=== PATIENT | female | born 1985 | race Caucasian/White ===

== ENCOUNTER 2016-05-24 13:20 | Emergency (ER) | payer MEDICAID ==
[2016-05-24] MEDS ORDERED: Zofran 4 MG/2 ML VIAL IV ONE (13:55)
[2016-05-24] MEDS ORDERED: DILAUDID 1 MG/ML INJECTION IV ONE (13:55)
[2016-05-24] MEDS ORDERED: Sodium Chloride 0.9% 1000 ML 1,000 ML IV STA (13:56)
[2016-05-24] MEDS ORDERED: BENADRYL 50 MG/ML IV ONE (13:56)
[2016-05-24] MEDS ORDERED: TORAdol 30 mg Injection IV ONE (13:56)
[2016-05-24] MEDS ORDERED: DILAUDID 1 MG/ML INJECTION ONE (14:00)
[2016-05-24] MEDS ORDERED: Zofran 4 MG/2 ML VIAL ONE (14:00)
--- NOTE | 2016-05-24 14:01 | ERPHSYRPT ---
- History of Present Illness Time Seen by Provider: 05/24/16 13:50 Source: patient Exam Limitations: no limitations Patient Subjective Stated Complaint: Pt states she has had a migraine for 1 week. She states that she is nauseous, has "spots" in her vision, and is sensitive to light. She went to [place] to the [employer] on Friday and was given Toradol but it didn't help the pain. She was at [facility] at the end of April and a CT scan there showed a "dark spot on the right side of the head". She was transferred to [facility] and admitted. She was discharged on May 11. She has an appointment w/ Dr. De Oliveira on June 05. She states the only medication that helps the pain is Nubain or [place]. Triage Nursing Assessment: Pt alert and oriented x3. skin pink warm and dry. afebrile. pt moaning and grabbing right side of pain. no weakness noted. pupils 4mm and reactive Physician History: 31 y/o female with history of migraine headache comes to the ER with complaints of right sided headache for the past week. Pt describes the pain as throbbing, constant, as high as 10/10, with photophobia and nausea/vomiting. Pt has not taken any pain meds. Pt has an appointment with a neurologist later this month. Pt denies any fever, chills, neck pain, abdominal pain, diarrhea or urinary symptoms. Timing/Duration: week(s), constant Quality: throbbing Head Pain Location: frontal Severity of Pain-Max: severe Severity of Pain-Current: severe Recent Head Trauma: no recent headache/trauma Modifying Factors: Improves With: rest Associated Symptoms: nausea/vomiting Allergies/Adverse Reactions: sumatriptan [From Imitrex] Allergy (Verified 05/24/16 13:40) Home Medications: Amitriptyline HCl 25 mg [Elavil 25 mg] 25 mg PO HS 05/24/16 [History] Hx Tetanus, Diphtheria Vaccination/Date Given: Yes Hx Influenza Vaccination/Date Given: No Hx Pneumococcal Vaccination/Date Given: No - Review of Systems Constitutional: No Fever, No Chills Eyes: No Symptoms, Photophobia Ears, Nose, & Throat: No Symptoms Respiratory: No Cough, No Dyspnea Cardiac: No Chest Pain, No Edema, No Syncope Abdominal/Gastrointestinal: Nausea, Vomiting, No Abdominal Pain, No Diarrhea Genitourinary Symptoms: No Dysuria Musculoskeletal: No Back Pain, No Neck Pain Skin: No Rash Neurological: Headache, No Dizziness, No Focal Weakness, No Sensory Changes Psychological: No Symptoms Endocrine: No Symptoms All Other Systems: Reviewed and Negative - Past Medical History Pertinent Past Medical History: Yes Neurological History: Migraines, Seizures Cardiac History: Other Respiratory History: Pulmonary Embolism Other Medical History: PE after Hysterectomy, heart murmur - Past Surgical History Past Surgical History: Yes Gastrointestinal: Cholecystectomy Female Surgical History: Hysterectomy Other Surgical History: partial hyst 2008, rt fallopian tube and ovary removed last year, D & C - Social History Smoking Status: Never smoker Exposure to second hand smoke: No Drug Use: none Patient Lives Alone: No - Female History Hx Last Menstrual Period: hyster - Nursing Vital Signs Nursing Vital Signs: Initial Vital Signs Temperature 97.7 F Temperature Source Oral Pulse Rate 67 Respiratory Rate 12 Blood Pressure 126/86 Pain Intensity 8 - Physical Exam General Appearance: severe distress, anxiety Eye Exam: PERRL/EOMI, photophobia Ears, Nose, Throat Exam: normal ENT inspection, moist mucous membranes Neck Exam: normal inspection, supple, full range of motion, No meningismus Respiratory Exam: normal breath sounds, lungs clear Cardiovascular Exam: regular rate/rhythm, normal heart sounds Gastrointestinal/Abdominal Exam: soft, No tenderness, No distention Back Exam: normal inspection, normal range of motion Extremity Exam: normal inspection, normal range of motion Mental Status Exam: 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, 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, 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 Exam: normal hearing, normal speech, PERRL, No facial droop Coordination/Gait Exam: normal cerebellar function Motor/Sensory Exam: no motor deficit, no sensory deficit Skin Exam: normal color, warm, dry, No rash SpO2: 100 Oxygen Delivery: Room Air Ordered Tests: Active Orders 24 hr Category Date Time Status IV Insertion STAT Care 05/24/16 13:55 Active Medication Summary Discontinued Medications Generic Name Dose Route Start Last Admin Trade Name Jass PRN Reason Stop Dose Admin Diphenhydramine HCl 25 mg 05/24/16 13:56 05/24/16 14:12 Benadryl 50 Mg/Ml IV 05/24/16 13:57 25 mg STAT ONE Administration Diphenhydramine HCl Confirm 05/24/16 14:10 Benadryl 50 Mg/Ml Administered 05/24/16 14:11 Dose 50 mg .ROUTE .STK-MED ONE Hydromorphone HCl 1 mg 05/24/16 13:55 05/24/16 14:13 Dilaudid 1 Mg/Ml Injection IV 05/24/16 13:56 1 mg STAT ONE Administration Hydromorphone HCl Confirm 05/24/16 14:00 Dilaudid 1 Mg/Ml Injection Administered 05/24/16 14:01 Dose 1 mg .ROUTE .STK-MED ONE Sodium Chloride 1,000 mls @ 999 mls/hr 05/24/16 13:56 05/24/16 14:13 Sodium Chloride 0.9% 1000 Ml IV 05/24/16 14:56 999 mls/hr .Q1H1M STA Administration Sodium Chloride Confirm 05/24/16 14:10 Sodium Chloride 0.9% 1000 Ml Administered 05/24/16 14:11 Dose 1,000 mls @ ud .ROUTE .STK-MED ONE Ketorolac Tromethamine 30 mg 05/24/16 13:56 05/24/16 14:12 Toradol 30 Mg Injection IV 05/24/16 13:57 30 mg STAT ONE Administration Ketorolac Tromethamine Confirm 05/24/16 14:10 Toradol 30 Mg Injection Administered 05/24/16 14:11 Dose 30 mg .ROUTE .STK-MED ONE Ondansetron HCl 4 mg 05/24/16 13:55 05/24/16 14:12 Zofran 4 Mg/2 Ml Vial IV 05/24/16 13:56 4 mg STAT ONE Administration Ondansetron HCl Confirm 05/24/16 14:00 Zofran 4 Mg/2 Ml Vial Administered 05/24/16 14:01 Dose 4 mg .ROUTE .STK-MED ONE - Progress Progress: improved Air Movement: good Progress Note: 05/24/16 14:59 Pt feels better after receiving dilaudid, benadryl, toradol, zofran and IVF. Pt will be d/c home with a diagnosis of migraine headache and will F/U with her neurologist on 06/05 - Departure Time of Disposition: 15:01 Departure Disposition: Home Clinical Impression: Migraine headache Condition: Stable Critical Care Time: No Referrals: DONNIE SCHNEIDER [Primary Care Provider] - Instructions: Headache Additional Instructions: Follow up with your neurologist on 06/05 for further recommendations concerning management of migraine headaches. Also,call your primary care physician today to set up an appointment.
[2016-05-24] MEDS ORDERED: TORAdol 30 mg Injection ONE (14:10)
[2016-05-24] MEDS ORDERED: Sodium Chloride 0.9% 1000 ML 1,000 ML ONE (14:10)
[2016-05-24] MEDS ORDERED: BENADRYL 50 MG/ML ONE (14:10)
[2016-05-24 14:28] VITALS: BP 126/86
[2016-05-24 15:24] VITALS: PULSE 79; O2SAT 97
== END 2016-05-24 15:24 ==
LOC: ED 13:20
DX: G43.909 Migraine, unspecified, not intractable, without status migrainosus (principal); R11.2 Nausea with vomiting, unspecified; H53.8 Other visual disturbances
CPT/HCPCS: 36000; 96360; 96374; 96375; 99282; J1170; J1200; J1885; J2405

== ENCOUNTER 2016-06-08 14:19 | Emergency (ER) | payer MEDICAID, OTHER ==
--- NOTE | 2016-06-08 14:35 | ERPHSYRPT ---
- History of Present Illness Time Seen by Provider: 06/08/16 14:31 Source: patient, family Exam Limitations: no limitations Patient Subjective Stated Complaint: patient woke up 4 days ago with pain in left shoulder , saw nurse practitioner at [facility] wrote order for x-ray but they didnt have a way up here now they want to be treated in ER and just get taken care of here Triage Nursing Assessment: patient has tenderness and swelling in left shoulder and kneck, no abnormalities seen but patietn unable to move left extremity Physician History: patient woke up 4 days ago with pain in left shoulder , saw nurse practitioner at [facility] wrote order for x-ray but they didnt have a way up here now they want to be treated in ER and just get taken care of here Occurred: days ago Method of Injury: unknown Quality: constant Severity of Pain-Max: moderate Severity of Pain-Current: moderate Extremities Pain Location: shoulder: left, other: bilateral (neck pain) Modifying Factors: Improves With: nothing Associated Symptoms: neck pain Allergies/Adverse Reactions: sumatriptan [From Imitrex] Allergy (Verified 05/24/16 13:40) Home Medications: Amitriptyline HCl 25 mg [Elavil 25 mg] 25 mg PO HS 05/24/16 [History] Hx Tetanus, Diphtheria Vaccination/Date Given: Yes Hx Influenza Vaccination/Date Given: No Hx Pneumococcal Vaccination/Date Given: No Immunizations Up to Date: Yes - Review of Systems Constitutional: No Symptoms Eyes: No Symptoms Ears, Nose, & Throat: No Symptoms Respiratory: No Symptoms Cardiac: No Symptoms Abdominal/Gastrointestinal: No Symptoms Genitourinary Symptoms: No Symptoms Musculoskeletal: Other (left shoulder and neck pain) - Past Medical History Pertinent Past Medical History: Yes Neurological History: Migraines, Seizures Cardiac History: Other Respiratory History: Pulmonary Embolism Other Medical History: PE after Hysterectomy, heart murmur - Past Surgical History Past Surgical History: Yes Gastrointestinal: Cholecystectomy Female Surgical History: Hysterectomy Other Surgical History: partial hyst 2008, rt fallopian tube and ovary removed last year, D & C - Social History Smoking Status: Never smoker Exposure to second hand smoke: No Drug Use: none Patient Lives Alone: No - Nursing Vital Signs Nursing Vital Signs: Initial Vital Signs Temperature 97.6 F Temperature Source Oral Pulse Rate 90 Respiratory Rate 20 Blood Pressure [] 122/79 Pain Intensity 9 - Physical Exam General Appearance: no apparent distress Eyes, Ears, Nose, Throat Exam: normal ENT inspection Neck Exam: normal inspection Shoulder Exam: limited ROM, soft tissue tenderness Elbow/Forearm Exam: limited ROM, soft tissue tenderness SpO2: 98 Oxygen Delivery: Room Air - Course Nursing assessment & vital signs reviewed: Yes - Radiology Exams C-Spine X-ray Interpretation: Reviewed by me Shoulder X-ray Interpretation: Reviewed by me Ordered Tests: Active Orders 24 hr Category Date Time Status CERVICAL SPINE (2 OR 3 VIEW) Stat Exams 06/08/16 14:28 Taken SHOULDER Stat Exams 06/08/16 14:28 Taken Medication Summary Discontinued Medications Generic Name Dose Route Start Last Admin Trade Name Freq PRN Reason Stop Dose Admin Orphenadrine Citrate 60 mg 06/08/16 15:06 Norflex 60 Mg/2 Ml IM 06/08/16 15:07 STAT ONE - Progress Progress: unchanged, pain not gone completely Counseled pt/family regarding: diagnosis, need for follow-up, rad results - Departure Time of Disposition: 15:08 Departure Disposition: Home Clinical Impression: Left shoulder strain Qualifiers: Encounter type: initial encounter Qualified Code(s): S46.912A - Strain of unspecified muscle, fascia and tendon at shoulder and upper arm level, left arm , initial encounter Neck muscle strain Qualifiers: Encounter type: initial encounter Qualified Code(s): S16.1XXA - Strain of muscle, fascia and tendon at neck level, initial encounter Condition: Stable Critical Care Time: No Referrals: DONNIE SCHNEIDER [Primary Care Provider] - Instructions: Shoulder Pain, Neck Sprain, Neck Pain Additional Instructions: Please follow the instructions given to you. Please take your medication as prescribed if given. If symptoms recur or get worse, come back to the emergency room if you cannot reach your primary care physician, or call your primary care physician for an appointment. Again if your symptoms get worse, come back to the emergency room. Thanks for visiting emergency room, and let us take care of you.
[2016-06-08] MEDS ORDERED: Norflex 60 MG/2 ML IM ONE (15:06)
[2016-06-08] MEDS ORDERED: Norflex 60 MG/2 ML ONE (15:11)
[2016-06-08 15:25] VITALS: BP 135/70; PULSE 82; O2SAT 100
--- NOTE | 2016-06-08 21:44 | XRAY ---
Indication: Neck pain for 4 days. No known injury. Comparison: None 3 views of the cervical spine demonstrates normal alignment with disc spaces preserved. Minimal C3-C4 degenerative posterior endplate spurring. No acute fracture, subluxation, or soft tissue abnormalities.
--- NOTE | 2016-06-08 21:44 | XRAY ---
Indication: Pain for 4 days. No known injury. Comparison: None 3 views of the left shoulder obtained. No bony, articular, or soft tissue abnormalities.
== END 2016-06-08 15:25 | disposition home or self-care (01) ==
LOC: ED 14:19
DX: S46.912A Strain of unspecified muscle, fascia and tendon at shoulder and upper arm level, left arm, initial encounter (principal); S16.1XXA Strain of muscle, fascia and tendon at neck level, initial encounter; M54.2 Cervicalgia; M25.512 Pain in left shoulder
CPT/HCPCS: 72040; 73030; 96372; 99282; J2360

== ENCOUNTER 2016-08-02 21:44 | Emergency (ER) | payer OTHER ==
[2016-08-02] MEDS ORDERED: Phenergan 25 MG INJ IM ONE (22:00)
[2016-08-02] MEDS ORDERED: TORAdol 30 mg Injection IM ONE (22:00)
[2016-08-02] MEDS ORDERED: TYLENOL 325 MG PO ONE (22:00)
[2016-08-02] MEDS ORDERED: TORAdol 30 mg Injection ONE (22:04)
[2016-08-02] MEDS ORDERED: Phenergan 25 MG INJ ONE (22:04)
--- NOTE | 2016-08-02 22:10 | ERPHSYRPT ---
- History of Present Illness Time Seen by Provider: 08/02/16 22:08 Source: patient, family Exam Limitations: no limitations Patient Subjective Stated Complaint: COLLINS right side of head x 1 hour [employer] after being exposed to cigarette smoke. Sts took 3 regular strength tylenol at home for pain without relief. Sts nausea with pain. Lights/noise increase pain. Pain is throbbing, 9/10. Triage Nursing Assessment: Pt alert, oriented, answers all questions appropriately. Skin p/w/d, resps non-labored. Pt ambulatory to tx room, steady gait noted. Pt tearful, covering face. Pt pupils PERRL. Physician History: COLLINS right side of head x 1 hour [employer] after being exposed to cigarette smoke. Sts took 3 regular strength tylenol at home for pain without relief. Sts nausea with pain. Lights/noise increase pain. Pain is throbbing, 9/10. Quality: aching, burning Head Pain Location: frontal Severity of Pain-Max: moderate Severity of Pain-Current: moderate Recent Head Trauma: no recent headache/trauma Modifying Factors: Improves With: other (cigarrete smoke exposure) Allergies/Adverse Reactions: sumatriptan [From Imitrex] Allergy (Verified 08/02/16 22:08) Home Medications: Amitriptyline HCl 25 mg [Elavil 25 mg] 25 mg PO HS 05/24/16 [History] Hx Tetanus, Diphtheria Vaccination/Date Given: Yes Hx Influenza Vaccination/Date Given: No Hx Pneumococcal Vaccination/Date Given: No Immunizations Up to Date: Yes - Review of Systems Constitutional: No Fever, No Chills Eyes: No Symptoms Ears, Nose, & Throat: No Symptoms Respiratory: No Cough, No Dyspnea Cardiac: No Chest Pain, No Edema, No Syncope Abdominal/Gastrointestinal: No Abdominal Pain, No Nausea, No Vomiting, No Diarrhea Genitourinary Symptoms: No Dysuria Musculoskeletal: No Back Pain, No Neck Pain Skin: No Rash Neurological: Headache, No Dizziness, No Focal Weakness, No Sensory Changes Psychological: No Symptoms Endocrine: No Symptoms All Other Systems: Reviewed and Negative - Past Medical History Pertinent Past Medical History: Yes Neurological History: Migraines, Seizures Cardiac History: Other Respiratory History: Pulmonary Embolism Other Medical History: PE after Hysterectomy, heart murmur - Past Surgical History Past Surgical History: Yes Gastrointestinal: Cholecystectomy Female Surgical History: Hysterectomy Other Surgical History: partial hyst 2009, rt fallopian tube and ovary removed last year, D & C - Social History Smoking Status: Never smoker Exposure to second hand smoke: No Drug Use: none Patient Lives Alone: No - Female History Hx Last Menstrual Period: hyst - Nursing Vital Signs Nursing Vital Signs: Initial Vital Signs Temperature 98.1 F Temperature Source Oral Pulse Rate 94 Respiratory Rate 16 Blood Pressure [Right Arm] 139/76 Pain Intensity 9 - Physical Exam General Appearance: no apparent distress Eye Exam: PERRL/EOMI Ears, Nose, Throat Exam: normal ENT inspection, moist mucous membranes Neck Exam: normal inspection, supple, full range of motion, No meningismus Respiratory Exam: normal breath sounds, lungs clear Cardiovascular Exam: regular rate/rhythm, normal heart sounds Gastrointestinal/Abdominal Exam: soft, No tenderness, No distention Back Exam: normal inspection, normal range of motion Mental Status 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, 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, 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 Exam: normal speech, PERRL, No facial droop Coordination/Gait Exam: normal cerebellar function Motor/Sensory Exam: no motor deficit, no sensory deficit Skin Exam: normal color, warm, dry, No rash SpO2: 98 Oxygen Delivery: Room Air - Course Nursing assessment & vital signs reviewed: Yes Ordered Tests: Medication Summary Discontinued Medications Generic Name Dose Route Start Last Admin Trade Name Chilangoq PRN Reason Stop Dose Admin Acetaminophen 650 mg 08/02/16 22:00 08/02/16 22:06 Tylenol 325 Mg PO 08/02/16 22:01 Not Given STAT ONE Ketorolac Tromethamine 60 mg 08/02/16 22:00 08/02/16 22:05 Toradol 30 Mg Injection IM 08/02/16 22:01 60 mg STAT ONE Administration Ketorolac Tromethamine Confirm 08/02/16 22:04 Toradol 30 Mg Injection Administered 08/02/16 22:05 Dose 60 mg .ROUTE .STK-MED ONE Promethazine HCl 25 mg 08/02/16 22:00 08/02/16 22:05 Phenergan 25 Mg Inj IM 08/02/16 22:01 25 mg STAT ONE Administration Promethazine HCl Confirm 08/02/16 22:04 Phenergan 25 Mg Inj Administered 08/02/16 22:05 Dose 25 mg .ROUTE .STK-MED ONE - Progress Progress: improved Air Movement: good Blood Culture(s) Obtained: No Antibiotics given: No Counseled pt/family regarding: diagnosis, need for follow-up - Departure Time of Disposition: 22:29 Departure Disposition: Home Clinical Impression: Migraine headache Qualifiers: Migraine type: without aura Status migrainosus presence: without status migrainosus Intractability: intractable Qualified Code(s): G43.019 - Migraine without aura, intractable, without status migrainosus Condition: Stable Critical Care Time: No Referrals: DONNIE SCHNEIDER [Primary Care Provider] - Instructions: Headache Additional Instructions: HEADACHE 1. After discharge from the emergency department, you should rest at home in a cool, dark, quiet place for 12-24 hours. 2. If any of the following signs or symptoms are noticed, you should be re- evaluated right away: A. Visual changes B. Stiff Neck C. Change in quality or location of pain D. Fever E. Recurrent vomiting 3. If pain medications were prescribed or given, they may cause drowsiness. Prescriptions: Naproxen 375 mg [Naprosyn 375 mg] 375 mg PO Q8H #30 tablet
[2016-08-02 22:36] VITALS: BP 117/74; PULSE 84; O2SAT 99
== END 2016-08-02 22:37 | disposition home or self-care (01) ==
LOC: ED 21:44
DX: G43.019 Migraine without aura, intractable, without status migrainosus (principal); R11.0 Nausea; H53.149 Visual discomfort, unspecified
CPT/HCPCS: 96372; 99283; 99284; J1885; J2550

== ENCOUNTER 2016-09-06 21:28 | Emergency (ER) | payer OTHER ==
--- NOTE | 2016-09-06 23:20 | ERPHSYRPT ---
- History of Present Illness Time Seen by Provider: 09/06/16 22:30 Historian: patient Exam Limitations: no limitations Physician History: Postop appendectomy [address] Martinez at [facility]. She had 2 episodes of BRB that she coughed up while hospitalized, but that abated. She did notify the staff there, who felt that this would be a result of the ETT. Yesterday, she had a dog jump on her abd. Today, she had a BM without difficulty. She presents with worsening pain to right abd and she is out of her pain meds now. She reports vomiting x 2 today. Timing/Duration: today, worse Activities at Onset: none Quality: sharpness Abdominal Pain Onset Location: generalized abdomen Severity of Pain-Max: severe Severity of Pain-Current: severe Previous symptoms: same symptoms as today Allergies/Adverse Reactions: sumatriptan [From Imitrex] Allergy (Verified 09/06/16 23:32) Home Medications: Amitriptyline HCl 25 mg [Elavil 25 mg] 25 mg PO HS 05/24/16 [History] Hx Tetanus, Diphtheria Vaccination/Date Given: Yes Hx Influenza Vaccination/Date Given: No Hx Pneumococcal Vaccination/Date Given: No - Review of Systems Constitutional: No Symptoms Eyes: No Symptoms Ears, Nose, & Throat: No Symptoms Respiratory: No Symptoms Cardiac: No Symptoms Abdominal/Gastrointestinal: Abdominal Pain, Vomiting Genitourinary Symptoms: No Symptoms Musculoskeletal: No Symptoms Skin: No Symptoms Neurological: No Symptoms Psychological: No Symptoms Endocrine: No Symptoms Hematologic/Lymphatic: No Symptoms Immunological/Allergic: No Symptoms - Past Medical History Pertinent Past Medical History: Yes Neurological History: Migraines, Seizures Cardiac History: Other Respiratory History: Pulmonary Embolism Other Medical History: PE after Hysterectomy, heart murmur - Past Surgical History Past Surgical History: Yes Gastrointestinal: Cholecystectomy Female Surgical History: Hysterectomy Other Surgical History: partial hyst 2009, rt fallopian tube and ovary removed last year, D & C - Social History Smoking Status: Never smoker Exposure to second hand smoke: No Drug Use: none Patient Lives Alone: No - Nursing Vital Signs Nursing Vital Signs: Initial Vital Signs Temperature 98.9 F Temperature Source Oral Pulse Rate 84 Respiratory Rate 16 Blood Pressure [Left Arm] 120/80 Pain Intensity 2 - Physical Exam General Appearance: moderate distress Eye Exam: eyes nml inspection Ears, Nose, Throat Exam: normal ENT inspection, pharynx normal Neck Exam: normal inspection, non-tender, supple, full range of motion Respiratory Exam: normal breath sounds, lungs clear Cardiovascular Exam: regular rate/rhythm, normal heart sounds, normal peripheral pulses Gastrointestinal/Abdomen Exam: soft, tenderness, distention, other (quiet bowel sounds) Back Exam: normal inspection, normal range of motion Extremity Exam: normal inspection, normal range of motion, pelvis stable Neurologic Exam: alert, 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, cooperative Skin Exam: normal color, warm, dry SpO2 Interpretation: normal SpO2: 98 - Course Nursing assessment & vital signs reviewed: Yes - CT Exams Abdomen/Pelvis CT Interpretation: Negative, Tele-radiologist Report (Postsurgical appearance C/ W recent appendectomy) Ordered Tests: Active Orders 24 hr Category Date Time Status IV Insertion STAT Care 09/06/16 23:47 Active NPO (ED) STAT Care 09/06/16 23:23 Active ABDOMEN AND PELVIS W CONTRAST [CT] Stat Exams 09/06/16 23:23 Taken CBC W DIFF Stat Lab 09/06/16 23:35 Completed CMP Stat Lab 09/06/16 23:35 Completed HCG,QUALITATIVE URINE Stat Lab 09/06/16 23:40 Completed LIPASE Stat Lab 09/06/16 23:35 Completed Lactic Acid Urgent Lab 09/06/16 23:31 Completed UA Stat Lab 09/06/16 23:40 Completed Medication Summary Generic Name Dose Route Start Last Admin Trade Name Freq PRN Reason Stop Dose Admin Sodium Chloride 1,000 mls @ 100 mls/hr 09/06/16 23:30 09/06/16 23:45 Sodium Chloride 0.9% 1000 Ml IV 10/06/16 23:29 100 mls/hr .Q10H MALIKA Administration Discontinued Medications Generic Name Dose Route Start Last Admin Trade Name Freq PRN Reason Stop Dose Admin Hydromorphone HCl 1 mg 09/06/16 23:23 09/06/16 23:45 Hydromorphone 1 Mg/Ml Ampule IV 09/06/16 23:24 1 mg STAT ONE Administration Hydromorphone HCl Confirm 09/06/16 23:29 Hydromorphone 1 Mg/Ml Ampule Administered 09/06/16 23:30 Dose 1 mg .ROUTE .STK-MED ONE Ondansetron HCl 4 mg 09/06/16 23:23 09/06/16 23:45 Zofran 4 Mg/2 Ml Vial IV 09/06/16 23:24 4 mg STAT ONE Administration Ondansetron HCl Confirm 09/06/16 23:29 Zofran 4 Mg/2 Ml Vial Administered 09/06/16 23:30 Dose 4 mg .ROUTE .STK-MED ONE Pantoprazole Sodium 40 mg 09/06/16 23:23 09/06/16 23:45 Protonix 40 Mg Iv IV 09/06/16 23:24 40 mg STAT ONE Administration Pantoprazole Sodium Confirm 09/06/16 23:29 Protonix 40 Mg Iv Administered 09/06/16 23:30 Dose 40 mg IV .STK-MED ONE Lab/Rad Data: Laboratory Result Diagrams 09/06/16 23:35 09/06/16 23:35 Laboratory Results 09/06/16 09/06/16 09/06/16 Range/Units 23:40 23:40 23:35 WBC (4.0-10.5) K/mm3 RBC (4.1-5.4) M/mm3 Hgb (12.0-16.0) gm/dl Hct (35-47) % MCV (78-100) fl MCH (26-32) pg MCHC (32-36) g/dl RDW (11.5-14.0) % Plt Count (150-450) K/mm3 MPV (6-9.5) fl Gran % (36.0-66.0) % Lymphocytes % (24.0-44.0) % Monocytes % (0.0-12.0) % Eosinophils % (0.00-5.0) % Basophils % (0.0-0.4) % Basophils # (0-0.4) Sodium 140 (136-145) mEq/L Potassium 3.9 (3.5-5.1) mEq/L Chloride 101 (98-107) mEq/L Carbon Dioxide 27.9 (21-32) mEq/L Anion Gap 14.6 (5-15) MEQ/L BUN 11 (9-20) mg/dL Creatinine 0.70 (0.55-1.30) mg/dl Estimated GFR > 60 ML/MIN Glucose 101 (70-110) MG/DL Lactic Acid (0.4-2.0) Calcium 9.5 (8.5-10.1) mg/dL Total Bilirubin 0.3 (0.2-1.0) mg/dL AST 9 L (15-37) U/L ALT 19 (12-78) U/L Alkaline Phosphatase 144 H (46-116) U/L Serum Total Protein 8.1 (6.4-8.2) gm/dL Albumin 4.1 (3.4-5.0) g/dL Lipase 91 (73-393) U/L Ur Collection Type CLEAN CATCH Urine Color YELLOW (YELLOW) Urine Appearance CLEAR (CLEAR) Urine pH 7.5 (5-6) Ur Specific [place] 1.020 (1.005-1.025) Urine Protein NEGATIVE (Negative) Urine Glucose (UA) NEGATIVE (NEGATIVE) mg/dL Urine Ketones NEGATIVE (NEGATIVE) Urine Nitrite NEGATIVE (NEGATIVE) Urine Bilirubin NEGATIVE (NEGATIVE) Urine Urobilinogen 0.2 (0-1) mg/dL Urine WBC (Auto) NEGATIVE (NEGATIVE) Urine RBC (Auto) NEGATIVE (0-5) Sherwin/ul Urine HCG, Qual NEGATIVE (Negative) Specimen Received 09/06/16:2340 09/06/16 09/06/16 Range/Units 23:35 23:31 WBC 7.9 (4.0-10.5) K/mm3 RBC 5.01 (4.1-5.4) M/mm3 Hgb 15.4 (12.0-16.0) gm/dl Hct 46.4 (35-47) % MCV 92.6 (78-100) fl MCH 30.7 (26-32) pg MCHC 33.2 (32-36) g/dl RDW 12.5 (11.5-14.0) % Plt Count 242 (150-450) K/mm3 MPV 11.5 H (6-9.5) fl Gran % 56.9 (36.0-66.0) % Lymphocytes % 33.2 (24.0-44.0) % Monocytes % 4.7 (0.0-12.0) % Eosinophils % 4.8 (0.00-5.0) % Basophils % 0.4 (0.0-0.4) % Basophils # 0.03 (0-0.4) Sodium (136-145) mEq/L Potassium (3.5-5.1) mEq/L Chloride (98-107) mEq/L Carbon Dioxide (21-32) mEq/L Anion Gap (5-15) MEQ/L BUN (9-20) mg/dL Creatinine (0.55-1.30) mg/dl Estimated GFR ML/MIN Glucose (70-110) MG/DL Lactic Acid 0.8 (0.4-2.0) Calcium (8.5-10.1) mg/dL Total Bilirubin (0.2-1.0) mg/dL AST (15-37) U/L ALT (12-78) U/L Alkaline Phosphatase (46-116) U/L Serum Total Protein (6.4-8.2) gm/dL Albumin (3.4-5.0) g/dL Lipase (73-393) U/L Ur Collection Type Urine Color (YELLOW) Urine Appearance (CLEAR) Urine pH (5-6) Ur Specific [place] (1.005-1.025) Urine Protein (Negative) Urine Glucose (UA) (NEGATIVE) mg/dL Urine Ketones (NEGATIVE) Urine Nitrite (NEGATIVE) Urine Bilirubin (NEGATIVE) Urine Urobilinogen (0-1) mg/dL Urine WBC (Auto) (NEGATIVE) Urine RBC (Auto) (0-5) Sherwin/ul Urine HCG, Qual (Negative) Specimen Received - Progress Progress: improved Will see patient in: other (PCP 3 days) Counseled pt/family regarding: lab results, diagnosis, need for follow-up, rad results - Departure Time of Disposition: 02:00 Departure Disposition: Home Clinical Impression: Postoperative pain Condition: Stable Critical Care Time: No Prescriptions: Naproxen [Naprosyn] 500 mg PO BID #20 tablet
[2016-09-06] MEDS ORDERED: PROTONIX 40 MG IV IV ONE ×2 (23:23→23:29)
[2016-09-06] MEDS ORDERED: Zofran 4 MG/2 ML VIAL IV ONE (23:23)
[2016-09-06] MEDS ORDERED: Hydromorphone 1 mg/ml Ampule IV ONE (23:23)
[2016-09-06] MEDS ORDERED: Zofran 4 MG/2 ML VIAL ONE (23:29)
[2016-09-06] MEDS ORDERED: Hydromorphone 1 mg/ml Ampule ONE (23:29)
[2016-09-06] MEDS ORDERED: Sodium Chloride 0.9% 1000 ML 1,000 ML ONE (23:29)
[2016-09-06] MEDS ORDERED: Sodium Chloride 0.9% 1000 ML 1,000 ML IV SCH (23:30)
[2016-09-06 23:45] LABS: BASOPHIL % 0.4 % (0.0-0.4); Eosinophil % 4.8 % (0.00-5.0); Granulocytes % 56.9 % (36.0-66.0); Lymphocytes % 33.2 % (24.0-44.0); Mean Cell Volume 92.6 fl (78-100); Mean Corpuscular Hemoglobin 30.7 pg (26-32); Mean Platelet Volume 11.5 fl (6-9.5); Monocytes % 4.7 % (0.0-12.0); Platelet Count 242 K/mm3 (150-450); Red Blood Count 5.01 M/mm3 (4.1-5.4); Red Cell Distribution Width 12.5 % (11.5-14.0); White Blood Count 7.9 K/mm3 (4.0-10.5)
[2016-09-06 23:52] LABS: Collection Type CLEAN CATCH
[2016-09-06 23:53] LABS: COMPLETE URINE MICROSCOPIC? NO; Ph 7.5 (5-6)
[2016-09-07 00:06] LABS: ALBUMIN 4.1 g/dL (3.4-5.0); ALKALINE PHOSPHATASE 144 U/L (46-116); ANION GAP 14.6 MEQ/L (5-15); BILIRUBIN,TOTAL 0.3 mg/dL (0.2-1.0); BLOOD UREA NITROGEN 11 mg/dL (9-20); CHLORIDE 101 mEq/L (98-107); Carbon Dioxide 27.9 mEq/L (21-32); Glucose 101 MG/DL (70-110); LIPASE 91 U/L (73-393); Potassium 3.9 mEq/L (3.5-5.1); SGOT/AST 9 U/L (15-37); SGPT/ALT 19 U/L (12-78); SODIUM 140 mEq/L (136-145); Total Protein 8.1 gm/dL (6.4-8.2)
[2016-09-07 02:14] VITALS: BP 119/72; PULSE 72; O2SAT 99
--- NOTE | 2016-09-07 08:56 | XRAY ---
Indication: Right abdominal pain and emesis. Status post appendectomy 5 days. Multiple contiguous axial images obtained through the abdomen and pelvis using 80 cc of Isovue-370 contrast only. Comparison: Outside study from [facility] dated February 14, 2016. Lung bases demonstrates minimal bibasilar dependent atelectasis. Heart is not enlarged. Stomach is moderately fluid distended. Noncontrasted bowel loops appear nonobstructed. There has been appendectomy. A few tiny intra-abdominal and right lower quadrant anterior abdominal wall air bubbles presumed related to recent surgery. No walled off fluid collection/abscess. Stable 1.5 cm right lobe hepatic hemangioma. Remaining liver, pancreas, spleen, adrenal glands, kidneys, ureters, bladder, and aorta appear unremarkable. No pathologic retroperitoneal lymphadenopathy. Osseous structures intact with multilevel thoracolumbar Schmorl nodes and L4 limbus vertebrae. Impression: 1. Normal post surgical changes related to recent appendectomy. No complications or walled off fluid collection. 2. Stable hepatic hemangioma. Comment: Preliminary interpretation was made by C. No discrepancy. CTDI 17.66
== END 2016-09-07 02:13 | disposition home or self-care (01) ==
LOC: ED 21:28
DX: G89.18 Other acute postprocedural pain (principal); Z98.890 Other specified postprocedural states; R10.9 Unspecified abdominal pain; R11.10 Vomiting, unspecified
CPT/HCPCS: 36000; 36415; 74177; 80053; 81002; 83605; 83690; 84703; 85025; 87040; 96360; 96361; 96374; 96375; 99284; 99285; J1170; J2405

== ENCOUNTER 2016-10-04 00:26 | Emergency (ER) | payer OTHER ==
[2016-10-04] MEDS ORDERED: Phenergan 25 MG INJ IV ONE (00:40)
[2016-10-04] MEDS ORDERED: MORPHINE SULFATE 4 MG INJ IV ONE (00:40)
[2016-10-04] MEDS ORDERED: Sodium Chloride 0.9% 1000 ML 1,000 ML IV STA (00:40)
--- NOTE | 2016-10-04 00:48 | ERPHSYRPT ---
- History of Present Illness Time Seen by Provider: 10/04/16 00:34 Historian: patient Exam Limitations: no limitations Patient Subjective Stated Complaint: pt states shes been having sharp abd pain for 2 days on rlq. states she has been having vomiting after eating Triage Nursing Assessment: pt alert and oriented, answers questions approp. pt ambulatory with steady gait noted. respirations nonlabored with lungs cta. abd soft with some tenderness on rt side. Physician History: SINCE YESTERDAY AFTER EATING [employer]S PEPPERONI PIZZA PT HAS HAD CONSTANT SHARP RIGHT UPPER QUADRANT ABDOMINAL PAIN WITH VOMITING X2 AND SHORTNESS OF AIR. LAST BM WAS YESTERDAY & WNL. PT DENIES CHEST PAIN, FEVER, RASH. Allergies/Adverse Reactions: sumatriptan [From Imitrex] Allergy (Verified 09/06/16 23:32) Home Medications: No Home Meds 1 ea MC UD 10/04/16 [History] Hx Tetanus, Diphtheria Vaccination/Date Given: Yes Hx Influenza Vaccination/Date Given: No Hx Pneumococcal Vaccination/Date Given: No Immunizations Up to Date: Yes - Review of Systems Constitutional: No Fever Respiratory: Dyspnea Cardiac: No Chest Pain Abdominal/Gastrointestinal: Abdominal Pain, Vomiting, No Diarrhea Neurological: No Headache All Other Systems: Reviewed and Negative - Past Medical History Pertinent Past Medical History: Yes Neurological History: Migraines, Seizures Cardiac History: Other Respiratory History: Pulmonary Embolism Other Medical History: PE after Hysterectomy, heart murmur - Past Surgical History Past Surgical History: Yes Gastrointestinal: Appendectomy, Cholecystectomy Female Surgical History: Hysterectomy Other Surgical History: partial hyst 2008, rt fallopian tube and ovary removed last year, D & C - Social History Smoking Status: Never smoker Exposure to second hand smoke: No Drug Use: none Patient Lives Alone: No - Female History Hx Last Menstrual Period: hysterectomy - Nursing Vital Signs Nursing Vital Signs: Initial Vital Signs Temperature 97.3 F Temperature Source Oral Pulse Rate 82 Respiratory Rate 16 Blood Pressure [Right Arm] 122/62 Pain Intensity 9 - Physical Exam General Appearance: alert Eye Exam: PERRL/EOMI, eyes nml inspection Ears, Nose, Throat Exam: TMs normal, pharynx normal, moist mucous membranes Neck Exam: normal inspection Respiratory Exam: lungs clear Cardiovascular Exam: normal heart sounds Gastrointestinal/Abdomen Exam: soft, normal bowel sounds, tenderness (MILD RIGHT UPPER QUADRANT ABDOMINAL TENDERNESS), No guarding Back Exam: normal range of motion Extremity Exam: normal inspection, No pedal edema Neurologic Exam: alert, cooperative Skin Exam: warm, dry SpO2 Interpretation: normal SpO2: 100 Oxygen Delivery: Room Air - Course Nursing assessment & vital signs reviewed: Yes Ordered Tests: Active Orders 24 hr Category Date Time Status Clean Catch Urine Specimen STAT Care 10/04/16 00:40 Active EKG-ER Only STAT Care 10/04/16 00:40 Active IV Insertion STAT Care 10/04/16 00:40 Active CHEST 1 VIEW (PORTABLE) Stat Exams 10/04/16 00:41 Taken AMYLASE Stat Lab 10/04/16 00:51 Completed CBC W DIFF Stat Lab 10/04/16 00:51 Completed CMP Stat Lab 10/04/16 00:51 Completed HCG QUALITATIVE,SERUM Stat Lab 10/04/16 00:51 Stop Req HCG, Quantitative (Inhouse) Stat Lab 10/04/16 01:00 Received LIPASE Stat Lab 10/04/16 00:51 Completed TROPONIN Stat Lab 10/04/16 00:51 Completed UA W/RFX UR CULTURE Stat Lab 10/04/16 01:25 Completed Urine Triage Profile Stat Lab 10/04/16 01:25 Completed Medication Summary Discontinued Medications Generic Name Dose Route Start Last Admin Trade Name Freq PRN Reason Stop Dose Admin Sodium Chloride 1,000 mls @ 999 mls/hr 10/04/16 00:40 10/04/16 01:13 Sodium Chloride 0.9% 1000 Ml IV 10/04/16 01:40 999 mls/hr .Q1H1M STA Administration Sodium Chloride Confirm 10/04/16 01:05 Sodium Chloride 0.9% 1000 Ml Administered 10/04/16 01:06 Dose 1,000 mls @ ud .ROUTE .STK-MED ONE Morphine Sulfate 4 mg 10/04/16 00:40 10/04/16 01:16 Morphine Sulfate 4 Mg Inj IV 10/04/16 00:41 4 mg STAT ONE Administration Morphine Sulfate Confirm 10/04/16 01:05 Morphine Sulfate 4 Mg Inj Administered 10/04/16 01:06 Dose 4 mg .ROUTE .STK-MED ONE Promethazine HCl 12.5 mg 10/04/16 00:40 10/04/16 01:14 Phenergan 25 Mg Inj IV 10/04/16 00:41 12.5 mg STAT ONE Administration Promethazine HCl Confirm 10/04/16 01:04 Phenergan 25 Mg Inj Administered 10/04/16 01:05 Dose 25 mg .ROUTE .STK-MED ONE Lab/Rad Data: Laboratory Result Diagrams 10/04/16 00:51 10/04/16 00:51 Laboratory Results 10/04/16 10/04/16 10/04/16 Range/Units 01:25 01:25 00:51 WBC (4.0-10.5) K/mm3 RBC (4.1-5.4) M/mm3 Hgb (12.0-16.0) gm/dl Hct (35-47) % MCV (78-100) fl MCH (26-32) pg MCHC (32-36) g/dl RDW (11.5-14.0) % Plt Count (150-450) K/mm3 MPV (6-9.5) fl Gran % (36.0-66.0) % Lymphocytes % (24.0-44.0) % Monocytes % (0.0-12.0) % Eosinophils % (0.00-5.0) % Basophils % (0.0-0.4) % Basophils # (0-0.4) Sodium 143 (136-145) mEq/L Potassium 3.7 (3.5-5.1) mEq/L Chloride 107 (98-107) mEq/L Carbon Dioxide 28.2 (21-32) mEq/L Anion Gap 11.7 (5-15) MEQ/L BUN 16 (9-20) mg/dL Creatinine 0.80 (0.55-1.30) mg/dl Estimated GFR > 60 ML/MIN Glucose 98 (70-110) MG/DL Calcium 8.8 (8.5-10.1) mg/dL Total Bilirubin 0.20 (0.2-1.0) mg/dL AST 14 L (15-37) U/L ALT 11 L (12-78) U/L Alkaline Phosphatase 148 H (46-116) U/L Troponin I < 0.017 (0.000-0.056) ng/ml Serum Total Protein 7.4 (6.4-8.2) gm/dL Albumin 3.8 (3.4-5.0) g/dL Amylase 47 (25-115) U/L Lipase 188 (73-393) U/L Ur Collection Type CLEAN CATCH Urine Color YELLOW (YELLOW) Urine Appearance SLIGHTLY CLOUDY (CLEAR) Urine pH 6.5 (5-6) Ur Specific [place] 1.025 (1.005-1.025) Urine Protein NEGATIVE (Negative) Urine Glucose (UA) NEGATIVE (NEGATIVE) mg/dL Urine Ketones NEGATIVE (NEGATIVE) Urine Nitrite NEGATIVE (NEGATIVE) Urine Bilirubin NEGATIVE (NEGATIVE) Urine Urobilinogen 0.2 (0-1) mg/dL Urine WBC (Auto) NEGATIVE (NEGATIVE) Urine RBC (Auto) NEGATIVE (0-5) Sherwin/ul Urine Opiates Level NEG. (NEGATIVE) Ur Methadone NEG. (NEGATIVE) Urine Barbiturates NEG. (NEGATIVE) Ur Phencyclidine (PCP) NEG. (NEGATIVE) Urine Amphetamine NEG. (NEGATIVE) U Benzodiazepine Level NEG. (NEGATIVE) Urine Cocaine NEG. (NEGATIVE) Urine Marijuana (THC) NEG. (NEGATIVE) Specimen Received 10/04/16 0130 10/04/16 Range/Units 00:51 WBC 7.6 (4.0-10.5) K/mm3 RBC 4.50 (4.1-5.4) M/mm3 Hgb 13.7 (12.0-16.0) gm/dl Hct 42.3 (35-47) % MCV 94.0 (78-100) fl MCH 30.4 (26-32) pg MCHC 32.4 (32-36) g/dl RDW 12.5 (11.5-14.0) % Plt Count 207 (150-450) K/mm3 MPV 11.3 H (6-9.5) fl Gran % 44.5 (36.0-66.0) % Lymphocytes % 42.6 (24.0-44.0) % Monocytes % 6.6 (0.0-12.0) % Eosinophils % 5.9 H (0.00-5.0) % Basophils % 0.4 (0.0-0.4) % Basophils # 0.03 (0-0.4) Sodium (136-145) mEq/L Potassium (3.5-5.1) mEq/L Chloride (98-107) mEq/L Carbon Dioxide (21-32) mEq/L Anion Gap (5-15) MEQ/L BUN (9-20) mg/dL Creatinine (0.55-1.30) mg/dl Estimated GFR ML/MIN Glucose (70-110) MG/DL Calcium (8.5-10.1) mg/dL Total Bilirubin (0.2-1.0) mg/dL AST (15-37) U/L ALT (12-78) U/L Alkaline Phosphatase (46-116) U/L Troponin I (0.000-0.056) ng/ml Serum Total Protein (6.4-8.2) gm/dL Albumin (3.4-5.0) g/dL Amylase (25-115) U/L Lipase (73-393) U/L Ur Collection Type Urine Color (YELLOW) Urine Appearance (CLEAR) Urine pH (5-6) Ur Specific [place] (1.005-1.025) Urine Protein (Negative) Urine Glucose (UA) (NEGATIVE) mg/dL Urine Ketones (NEGATIVE) Urine Nitrite (NEGATIVE) Urine Bilirubin (NEGATIVE) Urine Urobilinogen (0-1) mg/dL Urine WBC (Auto) (NEGATIVE) Urine RBC (Auto) (0-5) Sherwin/ul Urine Opiates Level (NEGATIVE) Ur Methadone (NEGATIVE) Urine Barbiturates (NEGATIVE) Ur Phencyclidine (PCP) (NEGATIVE) Urine Amphetamine (NEGATIVE) U Benzodiazepine Level (NEGATIVE) Urine Cocaine (NEGATIVE) Urine Marijuana (THC) (NEGATIVE) Specimen Received - Departure Time of Disposition: 01:51 Departure Disposition: Home Clinical Impression: ABDOMINAL PAIN, VOMITING, DYSPNEA Condition: Fair Critical Care Time: No Instructions: Abdominal Pain-Adult, Shortness of Breath Additional Instructions: FOLLOW UP WITH PRIVATE DOCTOR TOMORROW. Prescriptions: Promethazine HCl 25 mg [Phenergan 25 mg] 25 mg PO Q4H PRN PRN #14 tablet PRN Reason: Nausea/Vomiting
[2016-10-04 00:55] LABS: BASOPHIL % 0.4 % (0.0-0.4); Eosinophil % 5.9 % (0.00-5.0); Granulocytes % 44.5 % (36.0-66.0); Lymphocytes % 42.6 % (24.0-44.0); Mean Corpuscular Hemoglobin 30.4 pg (26-32); Mean Platelet Volume 11.3 fl (6-9.5); Monocytes % 6.6 % (0.0-12.0); Platelet Count 207 K/mm3 (150-450); Red Cell Distribution Width 12.5 % (11.5-14.0); White Blood Count 7.6 K/mm3 (4.0-10.5)
[2016-10-04] MEDS ORDERED: Phenergan 25 MG INJ ONE (01:04)
[2016-10-04] MEDS ORDERED: MORPHINE SULFATE 4 MG INJ ONE (01:05)
[2016-10-04] MEDS ORDERED: Sodium Chloride 0.9% 1000 ML 1,000 ML ONE (01:05)
[2016-10-04 01:20] LABS: ALBUMIN 3.8 g/dL (3.4-5.0); ALKALINE PHOSPHATASE 148 U/L (46-116); ANION GAP 11.7 MEQ/L (5-15); BLOOD UREA NITROGEN 16 mg/dL (9-20); CHLORIDE 107 mEq/L (98-107); Carbon Dioxide 28.2 mEq/L (21-32); Glucose 98 MG/DL (70-110); LIPASE 188 U/L (73-393); Potassium 3.7 mEq/L (3.5-5.1); SGOT/AST 14 U/L (15-37); SGPT/ALT 11 U/L (12-78); SODIUM 143 mEq/L (136-145); Total Protein 7.4 gm/dL (6.4-8.2)
[2016-10-04 01:25] LABS: TROPONIN < 0.017 ng/ml (0.000-0.056)
[2016-10-04 01:37] LABS: ADD URINE CULTURE? NO (NO); COMPLETE URINE MICROSCOPIC? NO; Collection Type CLEAN CATCH; Ph 6.5 (5-6)
[2016-10-04 02:08] VITALS: BP 98/52; PULSE 68; O2SAT 98
--- NOTE | 2016-10-04 09:57 | XRAY ---
Indication: Short of breath. Comparison: April 02, 2016. Portable chest again demonstrates normal heart, lungs, and bony thorax.
== END 2016-10-04 02:05 | disposition home or self-care (01) ==
LOC: ED 00:26
DX: R10.31 Right lower quadrant pain (principal); R11.10 Vomiting, unspecified; R19.7 Diarrhea, unspecified; R06.2 Wheezing; R06.00 Dyspnea, unspecified
CPT/HCPCS: 36000; 36415; 71010; 80053; 80307; 81002; 82150; 83690; 84484; 84702; 85025; 93005; 96360; 96374; 96375; 99284; J2270; J2550

== ENCOUNTER 2017-01-03 00:23 | Emergency (ER) | payer OTHER ==
[2017-01-03] MEDS ORDERED: Zofran 4 MG/2 ML VIAL IV ONE (00:42)
[2017-01-03] MEDS ORDERED: TORAdol 30 mg Injection IV ONE (00:42)
[2017-01-03] MEDS ORDERED: Hydromorphone 1 mg/ml Ampule IV ONE (00:42)
[2017-01-03 00:47] VITALS: BP 140/80
--- NOTE | 2017-01-03 00:48 | ERPHSYRPT ---
- History of Present Illness Time Seen by Provider: 01/03/17 00:43 Source: patient Exam Limitations: no limitations Physician History: 31 y/o female with history of migraine headache comes to the ER with complaints of right sided headache that started today. Pt describes the pain as sharp, constant, 9/10 and not relieved by naproxen. Pt also admits to photophobia, phonophobia and nausea. Pt denies any fever, chills, neck pain, vomiting, or sinus pain. Timing/Duration: today Quality: sharpness Head Pain Location: frontal Severity of Pain-Max: severe Severity of Pain-Current: severe Recent Head Trauma: occasional headaches Associated Symptoms: nausea/vomiting, sensitive to light, No facial pain, No neck pain, No stiff neck Previous symptoms: same symptoms as today Allergies/Adverse Reactions: sumatriptan [From Imitrex] Allergy (Verified 01/03/17 00:47) Home Medications: No Home Meds [No Home Meds] 1 [facility] 10/04/16 [History] Hx Tetanus, Diphtheria Vaccination/Date Given: Yes Hx Influenza Vaccination/Date Given: No Hx Pneumococcal Vaccination/Date Given: No - Review of Systems Constitutional: No Fever, No Chills Eyes: No Symptoms Ears, Nose, & Throat: No Symptoms Respiratory: No Cough, No Dyspnea Cardiac: No Chest Pain, No Edema, No Syncope Abdominal/Gastrointestinal: Nausea, No Abdominal Pain, No Vomiting, No Diarrhea Genitourinary Symptoms: No Dysuria Musculoskeletal: No Back Pain, No Neck Pain Skin: No Rash Neurological: Headache, No Dizziness, No Focal Weakness, No Sensory Changes Psychological: No Symptoms Endocrine: No Symptoms All Other Systems: Reviewed and Negative - Past Medical History Pertinent Past Medical History: Yes Neurological History: Migraines, Seizures Cardiac History: Other Respiratory History: Pulmonary Embolism Other Medical History: PE after Hysterectomy, heart murmur - Past Surgical History Past Surgical History: Yes Gastrointestinal: Appendectomy, Cholecystectomy Female Surgical History: Hysterectomy Other Surgical History: partial hyst 2009, rt fallopian tube and ovary removed last year, D & C - Social History Smoking Status: Never smoker Exposure to second hand smoke: No Drug Use: none Patient Lives Alone: No - Nursing Vital Signs Nursing Vital Signs: Initial Vital Signs Temperature 98 F 01/03/17 00:46 Pulse Rate 92 H 01/03/17 00:46 Respiratory Rate 16 01/03/17 00:46 Blood Pressure 140/80 01/03/17 00:46 O2 Sat by Pulse Oximetry 97 01/03/17 00:46 Pain Scale Pain Intensity 10 - Physical Exam General Appearance: moderate distress Eye Exam: PERRL/EOMI, photophobia Ears, Nose, Throat Exam: normal ENT inspection, moist mucous membranes Neck Exam: normal inspection, supple, full range of motion, No meningismus Respiratory Exam: normal breath sounds, lungs clear Cardiovascular Exam: regular rate/rhythm, normal heart sounds Gastrointestinal/Abdominal Exam: soft, No tenderness, No distention Back Exam: normal inspection, normal range of motion Mental Status Exam: alert, 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, 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 Exam: normal hearing, normal speech, PERRL, No facial droop Coordination/Gait Exam: normal cerebellar function Motor/Sensory Exam: no motor deficit, no sensory deficit Skin Exam: normal color, warm, dry, No rash SpO2 Interpretation: normal - Course Nursing assessment & vital signs reviewed: Yes Ordered Tests: Active Orders 24 hr Category Date Time Status IV Insertion STAT Care 01/03/17 00:42 Active Medication Summary Discontinued Medications Generic Name Dose Route Start Last Admin Trade Name Freq PRN Reason Stop Dose Admin Hydromorphone HCl 1 mg 01/03/17 00:42 01/03/17 01:00 Hydromorphone 1 Mg/Ml Ampule IV 01/03/17 00:43 1 mg STAT ONE Administration Hydromorphone HCl Confirm 01/03/17 00:58 Hydromorphone 1 Mg/Ml Ampule Administered 01/03/17 00:59 Dose 1 mg .ROUTE .STK-MED ONE Ketorolac Tromethamine 30 mg 01/03/17 00:42 01/03/17 01:01 Toradol 30 Mg Injection IV 01/03/17 00:43 30 mg STAT ONE Administration Ketorolac Tromethamine Confirm 01/03/17 00:58 Toradol 30 Mg Injection Administered 01/03/17 00:59 Dose 30 mg .ROUTE .STK-MED ONE Ondansetron HCl 4 mg 01/03/17 00:42 01/03/17 01:01 Zofran 4 Mg/2 Ml Vial IV 01/03/17 00:43 4 mg STAT ONE Administration Ondansetron HCl Confirm 01/03/17 00:58 Zofran 4 Mg/2 Ml Vial Administered 01/03/17 00:59 Dose 4 mg .ROUTE .STK-MED ONE - Progress Progress: improved Progress Note: 01/03/17 01:31 Pt feels better after receiving dilaudid, toradol and zofran. Pt will be d/c home - Departure Time of Disposition: 01:32 Departure Disposition: Home Clinical Impression: Migraine headache Qualifiers: Migraine type: unspecified Status migrainosus presence: without status migrainosus Intractability: not intractable Qualified Code(s): G43.909 - Migraine, unspecified, not intractable, without status migrainosus Condition: Stable Critical Care Time: No Referrals: DONNIE SCHNEIDER [Primary Care Provider] - Instructions: Migraine Additional Instructions: Follow up with your primary care doctor for any additional recommendations for migraine headache.
[2017-01-03] MEDS ORDERED: TORAdol 30 mg Injection ONE (00:58)
[2017-01-03] MEDS ORDERED: Hydromorphone 1 mg/ml Ampule ONE (00:58)
[2017-01-03] MEDS ORDERED: Zofran 4 MG/2 ML VIAL ONE (00:58)
[2017-01-03 01:50] VITALS: PULSE 80; O2SAT 98
== END 2017-01-03 01:47 | disposition home or self-care (01) ==
LOC: ED 00:23
DX: G43.909 Migraine, unspecified, not intractable, without status migrainosus (principal)
CPT/HCPCS: 36000; 96374; 96375; 99284; J1170; J1885; J2405